=== PATIENT | female | born 1985 | race Caucasian/White ===

== ENCOUNTER 2017-10-03 01:20 | Emergency (ER) | payer MEDICAID ==
[~2017-10-03] VITALS: Ht 165.1 cm; Wt 103.0 kg
[2017-10-03] MEDS ORDERED: LORazepam 1MG TABLET ONE (01:50)
[2017-10-03] MEDS ORDERED: LORazepam 1MG TABLET PO ONE (02:00)
== END 2017-10-03 04:56 | disposition home or self-care (01) ==
LOC: MERGE 02:10 → ED 02:10
DX: F33.1 Major depressive disorder, recurrent, moderate (principal); F41.1 Generalized anxiety disorder
CPT/HCPCS: 93005; 99284

== ENCOUNTER 2018-09-25 15:36 | Emergency (ER) | payer MEDICAID ==
[~2018-09-25] VITALS: Ht 165.1 cm; Wt 98.5 kg
[2018-09-25 15:38] VITALS: BP 117/84
--- NOTE | 2018-09-25 16:40 | NUR ---
Patient/Caregiver given discharge instructions and they have confirmed that they understand the instructions. Patient ambulatory with steady gait.
== END 2018-09-25 16:42 | disposition home or self-care (01) ==
LOC: ED 15:55
DX: M77.8 Other enthesopathies, not elsewhere classified (principal)
CPT/HCPCS: 29125; 99283

== ENCOUNTER 2020-11-03 04:10 | Emergency (ER) | payer MEDICAID ==
[~2020-11-03] VITALS: Ht 165.1 cm; Wt 83.6 kg
--- NOTE | 2020-11-03 04:23 | NUR ---
pt BIBA for N/Vsince last night between 7-8pm, pt stated that she had been eating edibles all day and around 7 or 8pm she started to have nausea and vomitting, pt complaining of generalized abdominal pain, pt stated she had chest pain but when this RN asked for her to point where in her chest pt pointed at her upper adomen, pt has an IV started by EMS in her right forearm and was given 4mg zofran enroute to [facility]
[2020-11-03] MEDS ORDERED: KETOROLAC 30 MG/1 ML ONE (04:42)
[2020-11-03] MEDS ORDERED: ONDANSETRON 2MG/ML, 2ML ONE (04:43)
--- NOTE | 2020-11-03 04:46 | NUR ---
pt not able to provide a urine sample at this time, pt stated she would try again later, IV meds administered per MD orders
[2020-11-03] MEDS ORDERED: KETOROLAC 30 MG/1 ML IVPush ONE (05:00)
[2020-11-03] MEDS ORDERED: ONDANSETRON 2MG/ML, 2ML IVPush ONE (05:00)
[2020-11-03 05:07] LABS: ALANINE AMINOTRANSFERASE 108 U/L (12-78); ALBUMIN 3.3 g/dL (3.4-5.0); ANION GAP 7 mmol/L (5-15); CALCIUM 8.5 mg/dL (8.5-10.1); CHLORIDE 105 mmol/L (98-107); CREATININE 0.88 mg/dL (0.55-1.02)
[2020-11-03 05:10] LABS: MEAN CORPUSCULAR HEMOGLOBIN 30.7 pg (27.0-34.8); MEAN CORPUSCULAR HGB CONC 33.7 g/dL (32.4-35.8); MEAN PLATELET VOLUME 8.2 fL (7.4-10.4); PLATELET COUNT 297 x10^3/uL (130-400); RED CELL DISTRIBUTION WIDTH 13.1 % (9.6-15.2)
[2020-11-03 05:12] LABS: ALKALINE PHOSPHATASE 95 U/L (45-117); BILIRUBIN,TOTAL 0.9 mg/dL (0.2-1.0)
[2020-11-03] MEDS ORDERED: MAALOX/HYOSCYAMINE/LIDOCAINE 45 ML BTL PO ONE (05:30)
[2020-11-03] MEDS ORDERED: SODIUM CHLORIDE 0.9%, 500ML IVBOLUS ONE (05:30)
[2020-11-03] MEDS ORDERED: MAALOX/HYOSCYAMINE/LIDOCAINE 45 ML BTL ONE (05:46)
[2020-11-03 05:50] LABS: <PLATELET ESTIMATE> ADEQUATE; <PLT MORPHOLOGY> NORMAL PLT MORPH; <RBC MORPHOLOGY> NORMAL; BAND#(MANUAL) 1.62 x10^3/uL; BANDS%(MANUAL) 9 % (0-7); LYMPH#(MANUAL) 1.26 x10^3/uL (1-3.4); LYMPHS% (MANUAL) 7 % (22-44); MONOS#(MANUAL) 1.08 x10^3/uL (0.3-2.7); MONOS% (MANUAL) 6 % (2-9); SEG#(MANUAL) 14.04 x10^3/uL (1.8-6.8); SEGS% (MANUAL) 78 % (42-75)
--- NOTE | 2020-11-03 06:21 | NUR ---
pt laying in bed asleep, all needs in reach, call light in reach, NAD at this time
--- NOTE | 2020-11-03 06:45 | NUR ---
report from trudi zhong
[2020-11-03 06:46] LABS: MICROSCOPIC INDICATED
[2020-11-03 07:07] VITALS: BP 99/61
--- NOTE | 2020-11-03 07:08 | NUR ---
PT RESTING ON EHSAN BLUMN/VSS. CALL LIGHT WITHIN REACH. NO NEEDS AT THIS TIME
[2020-11-03] MEDS ORDERED: CEFTRIAXONE 1,000 MG in DEXTROSE 5% 50 ML IVPB ONE (07:30)
--- NOTE | 2020-11-03 07:51 | NUR ---
Patient given discharge instructions and RX, they have confirmed that they understand the instructions. Patient ambulatory with steady gait.
== END 2020-11-03 07:53 | disposition home or self-care (01) ==
LOC: ED 07:47
DX: K52.9 Noninfective gastroenteritis and colitis, unspecified (principal); R10.84 Generalized abdominal pain; R11.2 Nausea with vomiting, unspecified
CPT/HCPCS: 36415; 76700; 80053; 81001; 83690; 84703; 85025; 87086; 96361; 96365; 96375; 99284; J0696; J1885; J2405; J7040